=== PATIENT | male | born 1990 | race African-American/Black ===

== ENCOUNTER 2019-05-28 15:13 | Emergency (ER) | payer BC ==
[~2019-05-28] VITALS: Ht 193 cm; Wt 88.5 kg
[2019-05-28] MEDS ORDERED: NKM (15:29)
--- NOTE | 2019-05-28 15:42 | NUR ---
ED Nurse Note: Patient presents to ER due to left chest pain, increased with breathing x 1 year; patient came to ER today due to worsening pain. Reports no SOB, dyspnea or N/V or diaphoresis at this time. Patient is awake, alert, oriented x4. Regular, unlabored breathing noted. Reports no medical hx. Reports no injury. No changes in pain with position changes. Reports no recent illness. Placed patient in room.
[2019-05-28] MEDS ORDERED: Dicyclomine HCl 10mg/5ml oral soln ORAL ONE (15:45)
[2019-05-28] MEDS ORDERED: Lidocaine 2% Visc 15ml soln ORAL ONE (15:45)
[2019-05-28] MEDS ORDERED: Mylanta II UD 30ml ORAL ONE (15:45)
--- NOTE | 2019-05-28 15:54 | Emergency Room Report ---
History of Present Illness General Chief Complaint: Chest Pain Source: Patient Present Illness HPI Patient presents emergency department today complaint acute chest discomfort. Patient states that he has had intermittent episodes of chest pain for the last couple months but progressively become worse. States that his chest pain seems to be occurring at rest sometimes feels like gas. He denies any nausea or vomiting. Denies any diarrhea or chills but states that he exercises at times and plays sports. Patient appears to be relatively good health. But patient never experiences chest pain during exertion. The pain sometimes worse with deep inspiration. He denies any fever cough runny nose or sore throat. Denies any leg pain leg swelling or recent travel. No history of hormone supplementation. No other complaints were noted. Symptoms noted to be moderate. Patient does not have a primary care physician at this time. But he does have insurance now and states that he is set up to see a primary care physician. No other modifying factors. No other associated signs and symptoms. No other complaints were noted. Allergies: Coded Allergies: No Known Allergies (Unverified , 05/28/19) Patient History Past Medical History: none Past Surgical History: none Pertinent Family History: none Social History: Denies: smoking, alcohol use, drug use Reviewed Nursing Documentation: PMH: Agreed; PSxH: Agreed Nursing Documentation-PMH Past Medical History: No Stated History Review of Systems All Other Systems: negative except mentioned in HPI Physical Exam Vital Signs Date Time Temp Pulse Resp B/P (MAP) Pulse Ox O2 Delivery O2 Flow Rate FiO2 05/28/19 15:25 99.0 80 18 126/81 (96) 99 Room Air Sp02 EP Interpretation: reviewed, normal General Appearance: normal inspection, well appearing, no apparent distress, alert Head: atraumatic Eyes: bilateral eye normal inspection ENT: normal ENT inspection, hearing grossly normal, normal voice Neck: normal inspection, full range of motion, supple, no bony tend Respiratory: normal inspection, lungs clear, normal breath sounds, no respiratory distress, no retraction, no wheezing Cardiovascular #1: regular rate, rhythm, no edema Gastrointestinal: normal inspection, normal bowel sounds, non tender, soft, no guarding, no hernia Genitourinary: no CVA tenderness Musculoskeletal: normal inspection, back normal, normal range of motion Neurologic: normal inspection, alert, responsive, speech normal Psychiatric: normal inspection, judgement/insight normal, mood/affect normal Medical Decision Making Diagnostic Impression: Primary Impression: Chest pain ER Course Patient presented to the emergency department today complaining of chest pain. Differential diagnoses include acute coronary syndrome, pulmonary embolism, pneumothorax, chest wall pain, pleurisy, pericarditis, acute anxiety reaction just to name a few. Given the severity of the patient's presentation I felt this is a highly complex patient. This patient required extensive workup. CBC , chemistry, EKG, chest x-ray, cardiac enzymes, liver profile were all obtained. 12-lead EKG performed for nontraumatic chest pain. [facility] documentation: EKG was performed. Please refer to below for interpretation. Patient had CBC and chemistry obtained. Both of which were normal. Patient's cardiac enzymes also normal. Patient had normal chest x-ray. Patient's EKG and rhythm strip are also normal. Given the patient feels much better, and he had a negative workup, I feel the patient can be discharged home. Patient is advised to follow up with primary doctor in 2-3 days and return the emergency room for any worsening symptoms and as needed. Labs Test 05/28/19 15:40 White Blood Count 4.7 K/UL (4.8-10.8) Red Blood Count 4.41 M/UL (4.70-6.10) Hemoglobin 14.1 G/DL (14.2-18.0) Hematocrit 40.8 % (42.0-52.0) Mean Corpuscular Volume 93 FL (80-99) Mean Corpuscular Hemoglobin 32.0 PG (27.0-31.0) Mean Corpuscular Hemoglobin Concent 34.5 G/DL (32.0-36.0) Red Cell Distribution Width 10.6 % (11.6-14.8) Platelet Count 155 K/UL (150-450) Mean Platelet Volume 7.9 FL (6.5-10.1) Neutrophils (%) (Auto) 53.4 % (45.0-75.0) Lymphocytes (%) (Auto) 32.9 % (20.0-45.0) Monocytes (%) (Auto) 12.1 % (1.0-10.0) Eosinophils (%) (Auto) 0.8 % (0.0-3.0) Basophils (%) (Auto) 0.9 % (0.0-2.0) D-Dimer 0.25 mg/L FEU (0.00-0.49) Sodium Level 140 MMOL/L (136-145) Potassium Level 4.1 MMOL/L (3.5-5.1) Chloride Level 105 MMOL/L (98-107) Carbon Dioxide Level 31 MMOL/L (21-32) Anion Gap 5 mmol/L (5-15) Blood Urea Nitrogen 11 mg/dL (7-18) Creatinine 1.0 MG/DL (0.55-1.30) Estimat Glomerular Filtration Rate > 60 mL/min (>60) Glucose Level 97 MG/DL (74-106) Calcium Level 9.5 MG/DL (8.5-10.1) Total Bilirubin 0.5 MG/DL (0.2-1.0) Aspartate Amino Transf (AST/SGOT) 33 U/L (15-37) Alanine Aminotransferase (ALT/SGPT) 47 U/L (12-78) Alkaline Phosphatase 83 U/L (46-116) Total Creatine Kinase 165 U/L (26-308) Creatine Kinase MB 1.3 NG/ML (0.0-3.6) Creatine Kinase MB Relative Index 0.7 Troponin I 0.000 ng/mL (0.000-0.056) Pro-B-Type Natriuretic Peptide 15 pg/mL (0-125) Total Protein 7.0 G/DL (6.4-8.2) Albumin 3.6 G/DL (3.4-5.0) Globulin 3.4 g/dL Albumin/Globulin Ratio 1.1 (1.0-2.7) Lipase 152 U/L (73-393) EKG Diagnostic Results Rate: normal Rhythm: NSR ST Segments: no acute changes Rhythm Strip Diag. Results EP Interpretation: yes Rate: 70 Rhythm: NSR, no PVC's, no ectopy Chest X-Ray Diagnostic Results Chest X-Ray Diagnostic Results : Chest X-Ray Ordered: Yes # of Views/Limited/Complete: 1 View Indication: Chest Pain EP Interpretation: Yes Interpretation: no consolidation, no effusion, no pneumothorax, no acute cardiopulmonary disease Impression: No acute disease Electronically Signed by: Electronically signed by Albino August MD Last Vital Signs Date Time Temp Pulse Resp B/P (MAP) Pulse Ox O2 Delivery O2 Flow Rate FiO2 05/28/19 15:25 99.0 80 18 126/81 (96) 99 Room Air Status: improved Disposition: HOME, SELF-CARE Condition: Stable Scripts Famotidine (PEPCID AC) 20 Mg Tablet 20 MG PO DAILY for 14 Days, TAB Prov: Albino August MD 05/28/19 Ibuprofen* (MOTRIN*) 600 Mg Tablet 600 MG ORAL Q8H PRN for For Pain, #15 TAB 0 Refills Prov: Albino August MD 05/28/19 Albino August MD May 28, 2019 15:54
[2019-05-28 16:00] VITALS: BP 133/72
[2019-05-28 16:19] LABS: BASOPHILS % (AUTO) 0.9 % (0.0-2.0); EOSINOPHILS % (AUTO) 0.8 % (0.0-3.0); HEMATOCRIT 40.8 % (42.0-52.0); HEMOGLOBIN 14.1 G/DL (14.2-18.0); LYMPHOCYTES % (AUTO) 32.9 % (20.0-45.0); MEAN CORPUSCULAR VOLUME 93 FL (80-99); MONOCYTES % (AUTO) 12.1 % (1.0-10.0); NEUTROPHILS % (AUTO) 53.4 % (45.0-75.0); PLATELET COUNT 155 K/UL (150-450); RED BLOOD COUNT 4.41 M/UL (4.70-6.10); RED CELL DISTRIBUTION WIDTH 10.6 % (11.6-14.8); WHITE BLOOD COUNT 4.7 K/UL (4.8-10.8)
[2019-05-28 16:35] LABS: ANION GAP 5 mmol/L (5-15); BLOOD UREA NITROGEN 11 mg/dL (7-18); CALCIUM 9.5 MG/DL (8.5-10.1); CARBON DIOXIDE 31 MMOL/L (21-32); CHLORIDE 105 MMOL/L (98-107); POTASSIUM 4.1 MMOL/L (3.5-5.1); SODIUM 140 MMOL/L (136-145)
[2019-05-28 16:43] LABS: ALANINE AMINOTRANSFERASE 47 U/L (12-78); ALBUMIN 3.6 G/DL (3.4-5.0); ALBUMIN/GLOBULIN RATIO 1.1 (1.0-2.7); ALKALINE PHOSPHATASE 83 U/L (46-116); ASPARTATE AMINO TRANSFERASE 33 U/L (15-37); BILIRUBIN,TOTAL 0.5 MG/DL (0.2-1.0); CKMB 1.3 NG/ML (0.0-3.6); CREATINE KINASE 165 U/L (26-308)
[2019-05-28] MEDS ORDERED: PEPCID AC20 M2 PO (17:07)
[2019-05-28] MEDS ORDERED: IBUPROFEN600 MG ORAL (17:07)
[2019-05-28 17:12] VITALS: BP 128/70
--- NOTE | 2019-05-28 17:12 | NUR ---
ER DISCHARGE NOTE: Patient is cleared to be discharged per ERMD, pt is aox4, on room air, with stable vital signs. pt was given dc and prescription instructions, pt was able to verbalize understanding, pt id band and iv site removed without complications. pt is able to ambulate with steady gait. pt took all belongings.
--- NOTE | 2019-05-30 08:14 | Diagnostic Imaging Report ---
Indication: Reason For Exam: COUGH Technique: Single AP view of the chest. Comparison: None. Findings: The cardiomediastinal silhouette is within normal limits. There is no focal consolidation, pneumothorax or pleural effusion. Osseous structures demonstrate no acute abnormality. IMPRESSION: No acute cardiopulmonary findings.
== END 2019-05-28 17:12 | disposition home or self-care (01) ==
LOC: EMR 17:00
DX: R07.9 Chest pain, unspecified (principal)
CPT/HCPCS: 36415; 71045; 80053; 82550; 82553; 83690; 83880; 84484; 85025; 85379; 93005; 99284